=== PATIENT | female | born 1985 | race Hispanic/Latino ===

== ENCOUNTER → 2023-01-17 07:28 | Outpatient (CLI) | payer OTHER, SELFPAY | PROVIDERS: PCP Family Medicine; Visit Provider Nurse Practitioner Family | DX: N39.0 Urinary tract infection, site not specified (principal); N89.8 Other specified noninflammatory disorders of vagina | CPT/HCPCS: 87077; 87086; 87186; 87210 ==

== ENCOUNTER 2023-01-18 23:18 | Emergency (ER) | payer OTHER, SELFPAY ==
[2023-01-18 23:21] VITALS: O2SAT 93
[2023-01-18 23:22] VITALS: BP 160/106; PULSE 77; O2SAT 95
[2023-01-18 23:25] VITALS: BP 160/106; PULSE 76; RESP 18; TEMP 36.4; O2SAT 98; BMI 29.9
--- NOTE | 2023-01-18 23:31 | DI.CT.S_ITS ---
PROCEDURE: CT KIDNEY URETER BLADDER (KUB) INDICATIONS: Fever; flank pain; eval for stone TECHNIQUE: Axial sections were acquired from the lung bases to the pubic symphysis. Coronal and sagittal reformats were performed. For radiation dose reduction, the following was used: automated exposure control, adjustment of mA and/or kV according to patient size. COMPARISON: None. FINDINGS: Image quality: Excellent. Lung bases: Unremarkable. Heart: No significant findings. URINARY: Right Kidney: No stones or hydronephrosis. Right Ureter: No hydroureter. Left Kidney: No stones or hydronephrosis. Left Ureter: No hydroureter. Bladder: Normal wall thickness. No stones. ABDOMEN: Liver: Unremarkable. Gallbladder: Unremarkable. Biliary ducts: Unremarkable. Pancreas: Unremarkable. Spleen: Unremarkable. Adrenal Glands: Unremarkable. Stomach and Bowel: Stomach, small bowel loops, and colon are unremarkable. Peritoneum: No abnormal intraperitoneal fluid. No free air. Ventral Wall: No hernia. Abdominal Nodes: No enlarged retroperitoneal or mesenteric lymph nodes. Vessels: Aorta and inferior vena cava are normal in size. PELVIS: Pelvic Organs: Unremarkable. Pelvic Nodes: Unremarkable. Miscellaneous: No inguinal hernias are seen. In the expected area of the far distal margin of each ureter several calcifications can be seen which are indeterminate in position, and potentially simply representing small pelvic phleboliths. Bones: Unremarkable. IMPRESSION: Hydronephrosis or nephrolithiasis is not found. However, as discussed above there several scattered small calcifications within the area through which the ureters bilaterally pass near the posterior bladder margins. As noted, these may simply represent small pelvic phleboliths. If they do in fact represent distal ureteral stones the do not cause any perceptible hydronephrosis or hydroureter. Dictated by: Edgard Dubois M.D. on 01/19/2023 at 0:13 Approved by: Edgard Dubois M.D. on 01/19/2023 at 0:16
--- NOTE | 2023-01-18 23:32 | ED_ITS ---
HPI - General Adult General Chief complaint: Urogenital-Female Stated complaint: fever /uti/kidney stones Time Seen by Provider: 01/18/23 23:25 Source: patient Mode of arrival: Ambulatory History of Present Illness HPI narrative: 37-year-old female was seen in the walk-in clinic recently and diagnosed with a urinary tract infection. She was given a prescription for antibiotics and Pyridium and also Flexeril because she was also having a neck issue. She states there was an issue with where the antibiotics for sent and so she is not taken any these antibiotics. She is here because she states that she is having some lower back discomfort and urinary frequency and urgency. She does state that this feels like a prior history of kidney stones. Related Data Home Medications Medication Instructions Recorded Confirmed escitalopram oxalate 10 mg tablet 10 mg PO QDAY ##0 10/24/16 (Lexapro) Previous Rx's Medication Instructions Recorded cyclobenzaprine 10 mg tablet 10 mg PO TIDP PRN #14 tabs 10/24/16 ibuprofen 600 mg tablet 600 mg PO Q8HP PRN #30 tabs 10/24/16 cyclobenzaprine 5 mg tablet 5 mg PO TID PRN muscle spasm #20 01/17/23 tabs nitrofurantoin 100 mg PO Q12H 5 days #10 caps 01/17/23 monohydrate/macrocrystals 100 mg capsule (Macrobid) phenazopyridine 200 mg tablet 200 mg PO TID 6 doses #6 tabs 01/17/23 (Pyridium) nitrofurantoin 100 mg PO Q12H 5 days #10 caps 01/19/23 monohydrate/macrocrystals 100 mg capsule (Macrobid) phenazopyridine 100 mg tablet 100 mg PO TID PRN pain 6 doses #6 01/19/23 (Pyridium) tabs Allergies Allergy/AdvReac Type Severity Reaction Status Date / Time ibuprofen Allergy Mild Hemoptysis Verified 01/19/23 00:22 Penicillins [PENICILLINS] Allergy Unknown Hives Verified 01/19/23 00:22 Review of Systems Genitourinary Genitourinary: Reports system reviewed and no additional complaints, except as documented Musculoskeletal Musculoskeletal: Reports system reviewed and no additional complaints, except as documented Patient History Social History Smoking Status: Unknown if ever smoked Smoking Status: Unknown if ever smoked Exam Initial Vital Signs Initial Vital Signs: Vital Signs Pulse Oximetry 93 01/18/23 23:21 Const General: cooperative and comfortable Resp Effort & Inspection: normal respiratory effort Cardio Rate: regular rate Neuro General: patient alert and patient awake Course Orders Ordered: ED Orders 01/18/23 23:31 CT kidney ureter bladder (KUB) Stat 01/18/23 23:35 Basic Metabolic Panel Stat Complete Blood Count AUTO DIFF Stat Test Serum,Qual Stat 01/18/23 23:40 Urinalysis and Microscopic Stat Urine Culture Stat Discontinued Medications Nitrofurantoin Macrocrystals (Nitrofurantoin Er 100 Mg Capsule) 100 mg PO NOW ONE Stop: 01/19/23 00:31 Last Admin: 01/19/23 00:42 Dose: 100 mg Documented By: RISHABH Tramadol HCl (Tramadol 50 Mg Tablet) 50 mg PO NOW ONE Stop: 01/19/23 00:31 Last Admin: 01/19/23 00:42 Dose: 50 mg Documented By: RISHABH Vital Signs Vital signs: Vital Signs - 8 hr 01/18/23 23:25 01/18/23 23:21 01/18/23 23:22 Temperature 97.6 F Pulse Rate 76 Respiratory Rate 18 Blood Pressure 160/106 H 160/106 H Pulse Oximetry 98 93 Oxygen Delivery Method Room Air 01/18/23 23:22 01/19/23 00:34 01/19/23 00:34 Temperature Pulse Rate 77 72 Respiratory Rate Blood Pressure 121/86 Pulse Oximetry 95 100 Oxygen Delivery Method Medical Decision Making Medical Records Medical records reviewed: Yes I reviewed the patient's medical records. Lab Data Lab results reviewed: Yes I reviewed the patient's lab results. 01/18/23 23:35 01/18/23 23:35 Labs: Lab Results 01/18/23 01/18/23 01/18/23 Range/Units 23:35 23:35 23:35 WBC 7.0 (4.5-11.0) X10^3/uL RBC 4.59 (4.0-5.2) X10^6/uL Hgb 12.1 (12.0-16.0) g/dL Hct 36.2 (36-46) % MCV 78.9 L (80-100) fL MCH 26.2 (26-34) PG MCHC 33.3 (30-36) % RDW 13.7 (11.6-14.8) % Plt Count 181 (150-400) X10^3/uL Neut % (Auto) 65.9 (50-75) % Lymph % (Auto) 21.4 L (25-40) % Russell % (Auto) 6.8 (3-14) % Eos % (Auto) 4.1 H (2-4) % Baso % (Auto) 1.8 (0-2) % Neut # (Auto) 4600 (1555-0642) /uL Lymph # (Auto) 1500 (3735-1556) /uL Russell # (Auto) 500 (0-900) /uL Eos # (Auto) 300 (0-450) /uL Baso # (Auto) 100 (0-100) /uL Sodium 135 L (137-145) mmol/L Potassium 4.6 (3.4-5.1) mmol/L Chloride 103 (98-107) mmol/L Carbon Dioxide 27 (22-32) mmol/L BUN 11 (7-17) mg/dL Creatinine 0.63 (0.52-1.04) mg/dL Estimated GFR > 60 (>60) mL/min BUN/Creatinine Ratio 17.5 (6-22) Glucose 106 H (70-100) mg/dL Calcium 9.1 (8.4-10.2) mg/dL Serum , Qual Negative (Negative) Urine Color Urine Appearance Urine pH (4.5-8.0) Ur Specific Douds (1.000-1.035) Urine Protein (Negative) Urine Glucose (UA) (Negative) g/dL Urine Ketones (NEGATIVE) Urine Occult Blood (Negative) Urine Nitrate Urine Bilirubin (NEGATIVE) Urine Urobilinogen (0.2) E.U./dL Ur Leukocyte Esterase (NEGATIVE) Urine RBC (0-5/HPF) Urine WBC (0-5/HPF) Ur Squamous Epith Cells (0-5/HPF) Urine Bacteria (None) Micro UA Comment 01/18/23 Range/Units 23:40 WBC (4.5-11.0) X10^3/uL RBC (4.0-5.2) X10^6/uL Hgb (12.0-16.0) g/dL Hct (36-46) % MCV (80-100) fL MCH (26-34) PG MCHC (30-36) % RDW (11.6-14.8) % Plt Count (150-400) X10^3/uL Neut % (Auto) (50-75) % Lymph % (Auto) (25-40) % Russell % (Auto) (3-14) % Eos % (Auto) (2-4) % Baso % (Auto) (0-2) % Neut # (Auto) (5740-9048) /uL Lymph # (Auto) (6301-2291) /uL Russell # (Auto) (0-900) /uL Eos # (Auto) (0-450) /uL Baso # (Auto) (0-100) /uL Sodium (137-145) mmol/L Potassium (3.4-5.1) mmol/L Chloride (98-107) mmol/L Carbon Dioxide (22-32) mmol/L BUN (7-17) mg/dL Creatinine (0.52-1.04) mg/dL Estimated GFR (>60) mL/min BUN/Creatinine Ratio (6-22) Glucose (70-100) mg/dL Calcium (8.4-10.2) mg/dL Serum , Qual (Negative) Urine Color Yellow Urine Appearance Clear Urine pH 6.0 (4.5-8.0) Ur Specific Douds <=1.005 (1.000-1.035) Urine Protein Trace H (Negative) Urine Glucose (UA) Negative (Negative) g/dL Urine Ketones Negative (NEGATIVE) Urine Occult Blood 2+ H (Negative) Urine Nitrate Not Reportable Urine Bilirubin Negative (NEGATIVE) Urine Urobilinogen 1.0 (0.2) E.U./dL Ur Leukocyte Esterase 1+ H (NEGATIVE) Urine RBC 1-5/hpf (0-5/HPF) Urine WBC 5-10/hpf H (0-5/HPF) Ur Squamous Epith Cells None seen (0-5/HPF) Urine Bacteria Few (2-10) H (None) Micro UA Comment * Imaging Data CT scan - abdomen/pelvis: Radiologist's Impression: PROCEDURE:? CT KIDNEY URETER BLADDER (KUB) ? INDICATIONS:? Fever; flank pain; eval for stone ? TECHNIQUE:? Axial sections were acquired from the lung bases to the pubic symphysis.? Coronal and sagittal reformats were performed.? For radiation dose reduction, the following was used: ?automated exposure control, adjustment of mA and/or kV according to patient size.? ? COMPARISON:? None. ? FINDINGS:? Image quality:? Excellent.? ? Lung bases:? Unremarkable.? ? Heart:? No significant findings. ? URINARY: Right Kidney: ? No stones or hydronephrosis.? Right Ureter:? No hydroureter.? ? Left Kidney: ? No stones or hydronephrosis. Left Ureter:? No hydroureter.? ? Bladder:? Normal wall thickness. No stones. ? ? ? ABDOMEN: Liver:? Unremarkable.? ? Gallbladder:? Unremarkable.? ? Biliary ducts:? Unremarkable.? ? Pancreas:? Unremarkable.? ? Spleen:? Unremarkable.? ? Adrenal Glands:? Unremarkable.? ? ? Stomach and Bowel:? Stomach, small bowel loops, and colon are unremarkable.? Peritoneum:? No abnormal intraperitoneal fluid.? No free air.? ? Ventral Wall: ? No hernia.? Abdominal Nodes:? No enlarged retroperitoneal or mesenteric lymph nodes.? Vessels:? Aorta and inferior vena cava are normal in size.? ? PELVIS: Pelvic Organs:? Unremarkable.? ? Pelvic Nodes: Unremarkable. Miscellaneous: No inguinal hernias are seen. ? ? In the expected area of the far distal margin of each ureter several calcifications can be seen which are indeterminate in position, and potentially simply representing small pelvic phleboliths. ? Bones:? Unremarkable. ? IMPRESSION:? ? Hydronephrosis or nephrolithiasis is not found.? However, as discussed above there several scattered small calcifications within the area through which the ureters bilaterally pass near the posterior bladder margins.? As noted, these may simply represent small pelvic phleboliths.? If they do in fact represent distal ureteral stones the do not cause any perceptible hydronephrosis or hydroureter. MDM Narrative Medical decision making narrative: I am unsure where the antibiotics were sent during her prior visit. Review of her medical record shows that she does have evidence of urinary tract infection both of the prior walk-in clinic visit and also today. Her kidney functions unremarkable. The CT scan does not have any definitive kidney/ureteral stones. There was no other intra-abdominal acute pathology. I have low suspicion for pyelonephritis. I do feel the patient would benefit from antibiotics. I will write new prescriptions for her and sent them to the pharmacy of her choice. She was given a dose here in the emergency department prior to discharge. No indication for admission to the hospital. Return to the emergency department for new or worsening symptoms. Discharge Plan Departure Patient Disposition: Home Clinical Impression: Urinary tract infection Instructions: DI for Urinary Tract Infection (UTI) Activity Restrictions/Additional Instructions: Prescriptions today for antibiotic and Pyridium were sent to [facility] in [place]. Please pick them up tomorrow and start taking them as directed. Be sure that you increase your fluid intake. You can take Tylenol or ibuprofen for any discomfort. There was a urine culture pending at the time of your discharg e and we will contact you if we need to change any antibiotics based on this. Prescriptions: New nitrofurantoin monohyd/m-cryst [Macrobid] 100 mg capsule 100 mg PO Q12H 5 Days Qty: 10 0RF Rx Instructions: must administer with a meal/food phenazopyridine [Pyridium] 100 mg tablet 100 mg PO TID PRN (Reason: pain) Qty: 6 0RF No Action escitalopram oxalate [Lexapro] 10 MG tablet 10 mg PO QDAY Qty: 0 cyclobenzaprine 10 MG tablet 10 mg PO TIDP PRNQty: 14 0RF ibuprofen 600 MG tablet 600 mg PO Q8HP PRNQty: 30 0RF phenazopyridine [Pyridium] 200 mg tablet 200 mg PO TID 0 Days Qty: 6 0RF nitrofurantoin monohyd/m-cryst [Macrobid] 100 mg capsule 100 mg PO Q12H 5 Days Qty: 10 0RF Rx Instructions: must administer with a meal/food cyclobenzaprine 5 mg tablet 5 mg PO TID PRN (Reason: muscle spasm) Qty: 20 0RF Referrals: Khai Burgos MD [Primary Care Provider] - Stand Alone Forms: Patient Portal/API, Work Release Note
[2023-01-18 23:49] LABS: Appearance Urine UA CLEAR; Bilirubin Urine UA NEGATIVE (NEGATIVE); Color Urine UA YELLOW; Glucose Urine UA NEGATIVE (Negative); Ketones Urine UA NEGATIVE (NEGATIVE); Leukocyte Esterase Urine UA 1+ (NEGATIVE); Occult Blood Urine UA 2+ (Negative); Protein Urine UA TRACE (Negative); Specific Gravity Urine UA <=1.005 (1.000-1.035)
[2023-01-18 23:52] LABS: Add Manual Diff / Slide Review NO; BUN Creatinine Ratio 17.5 (6-22); Basophils Absolute Auto 100 /uL (0-100); Basophils Percent Auto 1.8 % (0-2); Blood Urea Nitrogen 11 mg/dL (7-17); Calcium 9.1 mg/dL (8.4-10.2); Carbon Dioxide 27 mmol/L (22-32); Chloride 103 mmol/L (98-107); Eosinophils Absolute Auto 300 /uL (0-450); Eosinophils Percent Auto 4.1 % (2-4); Estimated Glomerular Filt Rate > 60 mL/min (>60); Glucose 106 mg/dL (70-100); HEMOLYSIS < 15 (0-50); Hematocrit 36.2 % (36-46); Hemoglobin 12.1 g/dL (12.0-16.0); Lymphocytes Absolute Auto 1500 /uL (1100-4500); Lymphocytes Percent Auto 21.4 % (25-40); Mean Corpuscular HGB Conc 33.3 % (30-36); Mean Corpuscular Hemoglobin 26.2 PG (26-34); Mean Corpuscular Volume 78.9 fL (80-100); Monocytes Absolute Auto 500 /uL (0-900); Monocytes Percent Auto 6.8 % (3-14); Neutrophils Absolute Auto 4600 /uL (1500-7000); Neutrophils Percent Auto 65.9 % (50-75); Platelet Count 181 X10^3/uL (150-400); Potassium 4.6 mmol/L (3.4-5.1); Red Blood Cell Count 4.59 X10^6/uL (4.0-5.2); Red Cell Distribution Width 13.7 % (11.6-14.8); Sodium 135 mmol/L (137-145)
[2023-01-19 00:03] LABS: Bacteria Urine Few (2-10); RBC Urine 1-5/HPF (0-5/HPF); Squamous Epithelial Cell Urine None Seen (0-5/HPF); WBC Urine 5-10/HPF (0-5/HPF)
[2023-01-19 00:06] LABS: Pregnancy Test Serum,Qual Negative (Negative)
[2023-01-19 00:34] VITALS: BP 121/86; PULSE 72; O2SAT 100
[2023-01-19] MEDS: TRAMADOL 50 MG TABLET PO (00:42)
[2023-01-19] MEDS: NITROFURANTOIN ER 100 MG CAPSULE PO (00:42)
== END 2023-01-19 00:55 | disposition home or self-care (01) ==
PROVIDERS: Emergency Provider Emergency Medicine; PCP Family Medicine
DX: N39.0 Urinary tract infection, site not specified (principal)
CPT/HCPCS: 36415; 74176; 80048; 81001; 84703; 85025; 87077; 87086; 99284